=== PATIENT | male | born 1980 | race Two or more races ===

== ENCOUNTER 2017-03-21 12:58 | Inpatient (IN) | payer SELFPAY ==
[2017-03-21] MEDS ORDERED: NORMAL SALINE 1000 ML 1,000 ML IV ONE ×2 (13:00→14:00)
[2017-03-21] MEDS ORDERED: LIDOCAINE 2%/EPINEPHRINE INJ 20 ML VIAL INJ ONE (13:01)
[2017-03-21] MEDS ORDERED: KETAMINE HCL INJ 500 MG/10 ML VIAL IV ONE (13:01)
[2017-03-21] MEDS ORDERED: MIDAZOLAM 2 MG/2 ML INJ IV ONE (13:01)
[2017-03-21 13:09] LABS: ABSOLUTE BASOPHILS # (AUTO) 0.1 10^3/uL (0.0-0.2); ABSOLUTE EOSINOPHILS # (AUTO) 0.3 10^3/uL (0.0-0.6); ABSOLUTE LYMPHOCYTES (AUTO) 1.8 10^3/uL (0.5-4.7); ABSOLUTE MONOCYTES (AUTO) 0.7 10^3/uL (0.1-1.4); ABSOLUTE NEUT (AUTO) 14.1 10^3/uL (1.7-8.2); BASOPHILS % (AUTO) 0.3 % (0-2); EOSINOPHILS % (AUTO) 1.9 % (0-6); HEMATOCRIT 45.7 % (37.9-51.0); HEMOGLOBIN 15.3 g/dL (13.5-17.0); HGB HCT DIFFERENCE 0.2; LYMPHOCYTES % (AUTO) 10.4 % (13-45); MEAN CORPUSCULAR HEMOGLOBIN 27.9 pg (27.0-33.4); MEAN CORPUSCULAR HGB CONC 33.6 g/dL (32.0-36.0); MEAN CORPUSCULAR VOLUME 83 fl (80-97); MONOCYTES % (AUTO) 4.2 % (3-13); RED BLOOD COUNT 5.49 10^6/uL (4.35-5.55); RED CELL DISTRIBUTION WIDTH 12.6 % (11.5-14.0); SEGMENTED NEUTROPHILS % (AUTO) 83.2 % (42-78)
--- NOTE | 2017-03-21 13:24 | RADIOLOGY REPORT (SQ) ---
EXAM DESCRIPTION: CHEST SINGLE VIEW COMPLETED DATE/TIME: 03/21/2017 1:11 pm REASON FOR STUDY: ptx COMPARISON: None. EXAM PARAMETERS: NUMBER OF VIEWS: One view. TECHNIQUE: Single frontal radiographic view of the chest acquired. RADIATION DOSE: NA LIMITATIONS: None. FINDINGS: LUNGS AND PLEURA: There is a complete pneumothorax on the right. There does not appear to be significant mediastinal shift to the left. MEDIASTINUM AND HILAR STRUCTURES: No masses. Contour normal. HEART AND VASCULAR STRUCTURES: Heart normal in size. Normal vasculature. BONES: No acute findings. HARDWARE: None in the chest. OTHER: No other significant finding. IMPRESSION: Complete right pneumothorax. This does not appear to represent a tension pneumothorax. TECHNICAL DOCUMENTATION: JOB ID: [id number]
[2017-03-21 13:25] LABS: PROTHROMBIN TIME 12.8 SEC (11.4-15.4)
[2017-03-21 13:26] LABS: PARTIAL THROMBOPLASTIN TIME 30.1 SEC (23.5-35.8)
[2017-03-21 13:31] LABS: ANION GAP 14 (5-19); BLOOD UREA NITROGEN 8 mg/dL (7-20); CALCIUM 10.3 mg/dL (8.4-10.2); CARBON DIOXIDE 26 mmol/L (22-30); CHLORIDE 103 mmol/L (98-107); GLUCOSE 91 mg/dL (75-110); POTASSIUM 4.8 mmol/L (3.6-5.0); SODIUM 142.5 mmol/L (137-145)
[2017-03-21] MEDS ORDERED: ONDANSETRON HCL INJ/PF 4 MG/2 ML SDV IV ONE (14:00)
[2017-03-21] MEDS ORDERED: MORPHINE SULFATE 10 MG/ML INJ IV ONE ×2 (14:00→15:41)
--- NOTE | 2017-03-21 14:14 | RADIOLOGY REPORT (SQ) ---
EXAM DESCRIPTION: CHEST SINGLE VIEW COMPLETED DATE/TIME: 03/21/2017 1:59 pm REASON FOR STUDY: check chest tube placement Right upper chest 8F COMPARISON: AP chest 03/21/2017, 1303 hours EXAM PARAMETERS: NUMBER OF VIEWS: One view. TECHNIQUE: Single frontal radiographic view of the chest acquired. RADIATION DOSE: NA LIMITATIONS: None. FINDINGS: LUNGS AND PLEURA: Interval placement of a small caliber chest tube over the right anterio r 1st rib interspace. Near complete re-expansion of the right lung. There is still a small right ap ical and right basilar pneumothorax. This report was called to Dr. Rucker in the emergency room. Mild right basilar atelectasis. No right pleural effusion. The left lung is well inflated and clear. No left pleural effusion or pneumothorax. MEDIASTINUM AND HILAR STRUCTURES: No masses. Contour normal. HEART AND VASCULAR STRUCTURES: Heart normal in size. Normal vasculature. BONES: No acute findings. HARDWARE: Right 8 [place] small caliber chest tube OTHER: No other significant finding. IMPRESSION: Interval placement of a right-sided small caliber chest tube Near complete re-expansion of the right lung. There is still a small right apical and basilar pneumo thorax. Findings discussed with Dr. Maxwell in the emergency room TECHNICAL DOCUMENTATION: JOB ID: [id number]
--- NOTE | 2017-03-21 14:29 | ER Document Report ---
ED General - General Chief Complaint: Breathing Difficulty Stated Complaint: DIFFICULTY BREATHING Time Seen by Provider: 03/21/17 13:00 - HPI Patient complains to provider of: Difficulty in breathing right-sided chest pain Notes: Alerted by local urgent care that the patient is coming in with a outpatient chest x-ray showing a tension pneumothorax. Patient arrived POV and was brought back to trauma room #1. Patient states he is a smoker denies any trauma states pain ongoing since today. Denies any history of spontaneous pneumothorax in the past. Patient denies any other medical problems. Upon my evaluation patient is tachycardic no JVD no signs of inflamed restaurant distress. X-ray was seen my procedure directed towards T1 EKG from urgent care was reviewed no signs of any significant pathology. X-ray report reading as a tension pneumothorax. - Related Data Allergies/Adverse Reactions: No Known Allergies Allergy (Unverified 03/21/17 14:40) Home Medications: Current Home Medications No Home Medications 03/21/17 [History] Past Medical History - Social History Smoking Status: Current Every Day Smoker Chew tobacco use (# tins/day): No Frequency of alcohol use: None Drug Abuse: None Family History: Reviewed & Not Pertinent Surgical Hx: Negative - Immunizations Hx Diphtheria, Pertussis, Tetanus Vaccination: Yes Review of Systems - Review of Systems Constitutional: No symptoms reported EENT: No symptoms reported Cardiovascular: Chest pain Respiratory: Short of breath Gastrointestinal: No symptoms reported Genitourinary: No symptoms reported Male Genitourinary: No symptoms reported Musculoskeletal: No symptoms reported Skin: No symptoms reported Hematologic/Lymphatic: No symptoms reported Neurological/Psychological: No symptoms reported -: Yes All other systems reviewed and negative Physical Exam - Vital signs Vitals: Pulse Ox 99 03/21/17 13:00 Interpretation: Normal - General General appearance: Appears well, Alert - HEENT Head: Normocephalic, Atraumatic Eyes: Normal Pupils: PERRL - Respiratory Respiratory status: No respiratory distress Chest status: Nontender Breath sounds: Decreased air movement - Right side Chest palpation: Normal - Cardiovascular Rhythm: Regular Heart sounds: Normal auscultation Murmur: No - Abdominal Inspection: Normal Distension: No distension Bowel sounds: Normal Tenderness: Nontender Organomegaly: No organomegaly - Back Back: Normal, Nontender - Extremities General upper extremity: Normal inspection, Nontender, Normal color, Normal ROM , Normal temperature General lower extremity: Normal inspection, Nontender, Normal color, Normal ROM , Normal temperature, Normal weight bearing. No: Wisam's sign - Neurological Neuro grossly intact: Yes Cognition: Normal Orientation: AAOx4 [place] Coma Scale Eye Opening: Spontaneous Clement Coma Scale Verbal: Oriented Clement Coma Scale Motor: Obeys Commands Clement Coma Scale Total: 15 Speech: Normal Motor strength normal: LUE, RUE, LLE, RLE Sensory: Normal - Psychological Associated symptoms: Normal affect, Normal mood - Skin Skin Temperature: Warm Skin Moisture: Dry Skin Color: Normal Course - Re-evaluation Re-evalutation: 03/21/17 15:19 Patient underwent chest tube placement. There is no difficulty patient underwent conscious sedation for this discussed with surgery will admit the patient for spontaneous pneumothorax. Chest x-ray reviewed by myself shows a apical retained pneumonia - Vital Signs Vital signs: Temp Pulse Resp BP Pulse Ox 92 10 L 126/87 H 100 03/21/17 13:45 03/21/17 14:31 03/21/17 14:31 03/21/17 14:31 - Laboratory Result Diagrams: 03/21/17 13:00 03/21/17 13:00 Laboratory results interpreted by me: 03/21/17 03/21/17 13:00 13:00 WBC 17.0 H Seg Neutrophils % 83.2 H Lymphocytes % 10.4 L Absolute Neutrophils 14.1 H Calcium 10.3 H Procedures - Chest Tube Right Consent obtained: Yes Chest tube pre-insertion: Sterile PPE donned, Chloraprep applied Size of Romansh Tube (cm): 8 Anesthetic type: 1% Lidocaine mL's of anesthetic: 6 Chest tube post-insertion: Air stevens heard, Sutured, Position confirmed w/ CXR, Water seal, Low intermittent suction Chest tube drainage: 0 Number of attempts: 1 Complications: No - Conscious Sedation Conscious sedation Time started: 13:25 Time completed: 13:40 Consent obtained: Yes Indication: Chest tube placement Last meal: 4 hours prior to arrival Prior complications: Procedural sedation Normal healthy pt.: P1. - ASA Classification Airway Evaluation: Normal anatomy Mallampati Classification: Class 2 Used during procedure: Suction available, IV access obtained, Pulse ox on pt., telemetry monitor on pt. Medications administered: Versed, Ketamine Reversal agents: None I personally performed/intraservice time: Sedation, Procedure, 30 min or less Complications: No Critical Care Note - Critical Care Note Total time excluding time spent on procedures (mins): 35 Comments: Multiple evaluation patient with spontaneous pneumothorax. Discharge - Discharge Clinical Impression: Pneumothorax on right Condition: Good Disposition: ADMITTED OBSERVATION Admitting Provider: Surgicalist - Sheryl Unit Admitted: Surgical Floor
[2017-03-21] MEDS ORDERED: MORPHINE SULFATE 10 MG/ML INJ ONE (15:30)
[2017-03-21] MEDS ORDERED: INFLUENZA ADLT QUAD (36MOS+) 2017-18 VAC 0.5 ML SYR IM PRN (16:51)
[2017-03-21] MEDS ORDERED: MORPHINE SULFATE 10 MG/ML INJ IV PRN (19:53)
[2017-03-21] MEDS: OXYCODONE-ACETAMINOPHEN 5-325 MG TABLET PO PRN (20:12)
--- NOTE | 2017-03-21 20:48 | HISTORY AND PHYSICAL E ---
History and Physical NAME: VANE LANGE : 1980 AGE: 36Y ADMITTED: 03/21/2017 ROOM: 431 CHIEF COMPLAINT: Difficulty breathing and right chest pain. HISTORY OF PRESENT ILLNESS: This is a 36-year-old male who complained of shortness of breath with difficulty breathing and chest pain this morning. The patient was seen at the local urgent care where a chest x-ray showed a tension pneumothorax on the right chest. The patient then had a chest x-ray done at the emergency room which showed a complete right pneumothorax but no evidence of tension. A right chest tube was inserted by the ER physician, actually a Heimlich valve tube around 16-[place]ian chest tube. Postop chest x-ray showed the right lung about 95% reexpanded. ALLERGIES: No known allergies. HOME MEDICATIONS: No home medications. SOCIAL HISTORY: Smokes every day. Denies alcohol use or drug abuse. He actually smokes about a half a pack a day. FAMILY HISTORY: Reviewed and not pertinent. SURGICAL HISTORY: Negative. IMMUNIZATIONS: History of DPT vaccinations. REVIEW OF SYSTEMS: CONSTITUTIONAL: No symptoms reported. EENT: No symptoms reported. CARDIOVASCULAR: Chest pain. RESPIRATORY: Shortness of breath. GASTROINTESTINAL: No symptoms reported. GENITOURINARY: No symptoms reported. MALE GENITOURINARY: No symptoms reported. MUSCULOSKELETAL: No symptoms reported. SKIN: No symptoms reported. HEMATOLOGIC/LYMPHATIC: No symptoms reported. NEUROLOGICAL/PSYCHOLOGICAL: No symptoms reported. All other systems reviewed and negative. PHYSICAL EXAMINATION: VITAL SIGNS: Pulse ox 99%, respiration 10 per minute, blood pressure 126/87, pulse ox 100%. GENERAL: The patient appears alert, oriented, in no apparent acute distress. HEENT: Head is normocephalic, atraumatic. Eyes normal pupils, PERRL. RESPIRATORY: No respiratory distress. Breath sounds decreased right side. No chest tenderness. CARDIOVASCULAR: Regular rate and rhythm. No murmur. ABDOMEN: Soft, nontender, no organomegaly. BACK: Normal, nontender. EXTREMITIES: Normal upper and lower extremities with normal range of motion. NEUROLOGIC: Alert and oriented x4. Motor and sensory functions of upper and lower extremities normal. Clement Coma Scale normal, 15. PSYCHOLOGICAL: Normal affect and normal mood. SKIN: Warm, dry, normal. LABORATORY DATA: White count is 17,000; hemoglobin of 15.3. Electrolytes are normal, as well as the BUN and creatinine. IMPRESSION: Spontaneous pneumothorax right chest. PLAN: Keep the chest tube to suction and repeat chest x-ray in the morning. Pain medications p.r.n. DICTATING PHYSICIAN: ANNIE BETANCUR M.D. [id number] PHY#: [id number] ID: [id number] JOB#: [id number] ACCT: [id number] cc:ANNIE BETANCUR M.D. >
[2017-03-22] MEDS: OXYCODONE-ACETAMINOPHEN 5-325 MG TABLET PO PRN (05:15)
[2017-03-22] MEDS ORDERED: NORMAL SALINE 1000 ML 1,000 ML IV PRN (05:22)
[2017-03-22 05:24] LABS: HEMOGLOBIN 14.4 g/dL (13.5-17.0); HGB HCT DIFFERENCE 1.2; MEAN CORPUSCULAR HEMOGLOBIN 28.6 pg (27.0-33.4); MEAN CORPUSCULAR HGB CONC 34.3 g/dL (32.0-36.0); MEAN CORPUSCULAR VOLUME 84 fl (80-97); RED BLOOD COUNT 5.03 10^6/uL (4.35-5.55); RED CELL DISTRIBUTION WIDTH 12.6 % (11.5-14.0)
--- NOTE | 2017-03-22 06:52 | RADIOLOGY REPORT (SQ) ---
EXAM DESCRIPTION: CHEST SINGLE VIEW COMPLETED DATE/TIME: 03/22/2017 6:33 am REASON FOR STUDY: Chest Tube Confirmation COMPARISON: None. EXAM PARAMETERS: NUMBER OF VIEWS: One view. TECHNIQUE: Single frontal radiographic view of the chest acquired. RADIATION DOSE: NA LIMITATIONS: None. FINDINGS: LUNGS AND PLEURA: Small right basilar pneumothorax with atelectasis at the right lung base . The left lung is clear. MEDIASTINUM AND HILAR STRUCTURES: No masses. Contour normal. HEART AND VASCULAR STRUCTURES: Heart normal in size. Normal vasculature. BONES: No acute findings. HARDWARE: Small caliber right-sided chest tube. IMPRESSION: Small right pneumothorax with right basilar atelectasis. TECHNICAL DOCUMENTATION: JOB ID: [id number]
[2017-03-22] MEDS: NICOTINE 14 MG/24 HR PATCH.TD24 TD SCH (09:43)
[2017-03-22] MEDS ORDERED: INFLUENZA ADLT QUAD (36MOS+) 2017-18 VAC 0.5 ML SYR IM PRN (14:00)
--- NOTE | 2017-03-22 15:32 | PDOC PROGRESS REPORT ---
Subjective Progress Note for:: 03/22/17 Subjective:: Feels well. Minimal chest discomfort. No shortness of breath Physical Exam Vital Signs: Temp Pulse Resp BP Pulse Ox 97.9 F 68 14 101/45 L 99 03/22/17 11:31 03/22/17 11:31 03/22/17 11:31 03/22/17 11:31 03/22/17 11:31 Intake & Output 03/21/17 03/22/17 03/23/17 06:59 06:59 06:59 Intake Total 600 570 Output Total 1600 1400 Balance -1000 -830 General appearance: PRESENT: no acute distress, cooperative Respiratory exam: PRESENT: clear to auscultation jose a Cardiovascular exam: PRESENT: RRR, other - Chest tube in place. No flutter in the Heimlich valve. Results Laboratory Results: 03/22/17 04:55 03/22/17 04:55 WBC 8.0 RBC 5.03 Hgb 14.4 Hct 42.0 MCV 84 MCH 28.6 MCHC 34.3 RDW 12.6 Plt Count 140 L Impressions: Chest X-Ray 03/22/17 06:00 IMPRESSION: Small right pneumothorax with right basilar atelectasis. Assessment & Plan - Diagnosis (1) Pneumothorax on right Is this a current diagnosis for this admission?: Yes Plan: Status post chest tube placement. Patient doing very well. There is a very small apical pneumothorax. Will place the small bore chest tube to suction and repeat chest x-ray tomorrow. Incentive spirometry for his atelectasis.
[2017-03-23] MEDS: NICOTINE 14 MG/24 HR PATCH.TD24 TD SCH (09:14)
--- NOTE | 2017-03-23 09:32 | RADIOLOGY REPORT (SQ) ---
EXAM DESCRIPTION: CHEST SINGLE VIEW COMPLETED DATE/TIME: 03/23/2017 9:12 am REASON FOR STUDY: Follow-up pneumothorax COMPARISON: 03/22/2017 EXAM PARAMETERS: NUMBER OF VIEWS: One view. TECHNIQUE: Single frontal radiographic view of the chest acquired. RADIATION DOSE: NA LIMITATIONS: None. FINDINGS: LUNGS AND PLEURA: There has been almost complete interval re-expansion of the right lung. I cannot exclude a tiny residual right basilar pneumothorax. There has been almost complete interva l resolution of the associated atelectatic changes. The left lung remains clear and well expanded. MEDIASTINUM AND HILAR STRUCTURES: No masses. Contour normal. HEART AND VASCULAR STRUCTURES: Heart normal in size. Normal vasculature. BONES: No acute findings. HARDWARE: Small caliber right-sided chest tube is unchanged in position OTHER: No other significant finding. IMPRESSION: Almost complete interval re-expansion of the right lung. I cannot exclude a tiny residu al right basilar pneumothorax. Almost complete interval resolution of the associated atelectatic pawan nges. Other findings as noted above TECHNICAL DOCUMENTATION: JOB ID: [id number]
--- NOTE | 2017-03-23 20:40 | PDOC PROGRESS REPORT ---
Subjective Progress Note for:: 03/23/17 Physical Exam Vital Signs: Temp Pulse Resp BP Pulse Ox 98.2 F 65 18 116/50 L 100 03/23/17 16:40 03/23/17 16:40 03/23/17 16:40 03/23/17 16:40 03/23/17 16:40 Intake & Output 03/22/17 03/23/17 03/24/17 06:59 06:59 06:59 Intake Total 0 Output Total 10 Balance -10 Results Impressions: Chest X-Ray 03/23/17 07:00 IMPRESSION: Almost complete interval re-expansion of the right lung. I cannot exclude a tiny residual right basilar pneumothorax. Almost complete interval resolution of the associated atelectatic changes. Other findings as noted above Assessment & Plan - Diagnosis (1) Pneumothorax on right Is this a current diagnosis for this admission?: Yes Plan: Chest x-ray today showed resolution of pneumothorax. He was placed on waterseal on the Pleur-evac. Chest x-ray will be repeated in the morning. If the morning x-ray continues to serial resolution the chest tube will be removed. Follow-up chest x-ray will be obtained and the patient will be discharged there is no pneumothorax. This plan was discussed with the patient.
[2017-03-23] MEDS: OXYCODONE-ACETAMINOPHEN 5-325 MG TABLET PO PRN (23:13)
--- NOTE | 2017-03-24 08:52 | RADIOLOGY REPORT (SQ) ---
EXAM DESCRIPTION: CHEST SINGLE VIEW COMPLETED DATE/TIME: 03/24/2017 8:41 am REASON FOR STUDY: Follow-up pneumothorax COMPARISON: None. EXAM PARAMETERS: NUMBER OF VIEWS: One view. TECHNIQUE: Single frontal radiographic view of the chest acquired. RADIATION DOSE: NA LIMITATIONS: None. FINDINGS: LUNGS AND PLEURA: No opacities, masses or pneumothorax. No pleural effusion. MEDIASTINUM AND HILAR STRUCTURES: No masses. Contour normal. HEART AND VASCULAR STRUCTURES: Heart normal in size. Normal vasculature. BONES: No acute findings. HARDWARE: Small caliber right chest tube is again identified. OTHER: No other significant finding. IMPRESSION: No evidence for pneumothorax on the current study. No other significant interval change . TECHNICAL DOCUMENTATION: JOB ID: [id number]
[2017-03-24] MEDS: NICOTINE 14 MG/24 HR PATCH.TD24 TD SCH (09:30)
[2017-03-24] MEDS: OXYCODONE-ACETAMINOPHEN 5-325 MG TABLET PO PRN (09:30)
--- NOTE | 2017-03-24 11:10 | PDOC DISCHARGE SUMMARY ---
Discharge Summary (SDC) - Discharge Final Diagnosis: Spontaneous left pneumothorax Discharge Date: 03/24/17 Condition: Good Referrals: [facility] [Outside] Discharge Diet: Regular Discharge Activity: Activity As Tolerated, Other - No working for 1 week Report the Following to Your Physician Immediately: Shortness of Breath, Fever over 101 Degrees, Drainage-Foul Smelling
--- NOTE | 2017-03-24 14:39 | RADIOLOGY REPORT (SQ) ---
EXAM DESCRIPTION: CHEST PA/LAT COMPLETED DATE/TIME: 03/24/2017 2:19 pm REASON FOR STUDY: PNEUMOTHORAX COMPARISON: 03/24/2017 EXAM PARAMETERS: NUMBER OF VIEWS: two views TECHNIQUE: Digital Frontal and Lateral radiographic views of the chest acquired. RADIATION DOSE: NA LIMITATIONS: none FINDINGS: LUNGS AND PLEURA: No acute consolidations or pleural effusions. I cannot exclude a very t iny right apical pneumothorax status post removal of the right chest tube. MEDIASTINUM AND HILAR STRUCTURES: No masses or contour abnormalities. HEART AND VASCULAR STRUCTURES: Heart normal size. No evidence for failure. BONES: No acute findings. HARDWARE: Right chest tube has been removed since the previous study. OTHER: No other significant finding. IMPRESSION: I cannot exclude a very tiny right apical pneumothorax status post removal of the right chest tube. Other findings as noted above TECHNICAL DOCUMENTATION: JOB ID: [id number] [employer]- All Rights Reserved
[2017-03-24 15:13] VITALS: BP 125/68
== END 2017-03-24 15:15 | disposition home or self-care (01) | DRG 201 ==
LOC: ER 12:58 → UNDOADMOB 14:49 → EH 14:49 → 4S 15:55 → EH 15:55 → 4S 17:54 → OBSVTOIN 03-23 16:05
PROVIDERS: ADMIT Surgery; ATTEND Surgery
PROC: 0W9930Z Drainage of Right Pleural Cavity with Drainage Device, Percutaneous Approach (ICD-10-PCS; principal; 2017-03-21)
DX: J93.83 Other pneumothorax (principal); F17.200 Nicotine dependence, unspecified, uncomplicated
CPT/HCPCS: 36415; 71010; 71020; 80048; 85025; 85027; 85610; 85730; 94799; 96361; 96374; 96375; 96376; 99291; 99152; J2250; J2270; J2405; J3490; J7030